=== PATIENT | male | born 1995 | race African-American/Black ===

== ENCOUNTER 2020-04-14 21:11 | Observation (INO) | payer OTHER, SELFPAY ==
[~2020-04-14] VITALS: Ht 170.2 cm; Wt 56.7 kg
[2020-04-14 21:30] VITALS: BP_SYST 107
--- NOTE | 2020-04-14 21:30 | NUR ---
PT IN LOBBY AWAITING ER BED TO BECOME AVAILABLE.
--- NOTE | 2020-04-14 21:45 | NUR ---
CALM, ALERT, COMMUNICATES CLEARLY. RESP UNLABORED, SKIN WARM AND DRY, NO DISTRESS
--- NOTE | 2020-04-14 21:50 | NUR ---
DR ROJAS IN TO ASSESS
[2020-04-14] MEDS ORDERED: levETIRAcetam 500 MG IV PREMIX 100 ML IV ONE (22:00)
[2020-04-14] MEDS ORDERED: ACETAMINOPHEN 325 MG TABLET PO ONE (22:00)
[2020-04-14] MEDS ORDERED: LORazepam 2 MG/ML VIAL IVP ONE (22:00)
--- NOTE | 2020-04-14 23:06 | NUR ---
ALERT, CALM, SEIZURE PADS INTACT, SR ON MONITOR NO ECTOPY
--- NOTE | 2020-04-15 00:05 | NUR ---
Blood for labwork drawn from medical records custodian. Patient tolerated well.
--- NOTE | 2020-04-15 00:32 | NUR ---
Patient resting quietly. No acute distress noted. Vital signs within normal range.
--- NOTE | 2020-04-15 01:51 | NUR ---
Patient resting quietly. No acute distress noted. Vital signs within normal range.
--- NOTE | 2020-04-15 03:19 | NUR ---
Patient resting quietly. No acute distress noted. Vital signs within normal range.
[2020-04-15 03:50] LABS: SODIUM SERUM 125 mmol/L (136-145)
[2020-04-15 03:51] LABS: ANION GAP 0 (5-15); CHLORIDE 69 mmol/L (98-107); GLUCOSE 90 mg/dL (70-99); POTASSIUM 2.3 mmol/L (3.5-5.1)
[2020-04-15 03:52] LABS: ALCOHOL, BLOOD < 3 mg/dL (<10); CALCIUM 9.7 mg/dL (8.4-11.0); CREATININE 4.39 mg/dL (0.55-1.30); GFR AFRICAN AMERICAN 21 mL/min (>90); UREA NITROGEN, BLOOD 56 mg/dL (8-21)
[2020-04-15] MEDS ORDERED: KCL 20 mEq in 100 mL (PREMIX) 100 ML IV ONE (04:00)
[2020-04-15] MEDS ORDERED: POTASSIUM CHLORIDE 20 MEQ/PKT PACKET PO ONE (04:15)
--- NOTE | 2020-04-15 04:20 | NUR ---
Patient woke up, patient reported, Hx Kidney problem and epilepsy (Keppra -patient report missed medication couple days).
--- NOTE | 2020-04-15 04:50 | NUR ---
Swabbed Covid-19 as protocol and sent to lab.
[2020-04-15] MEDS ORDERED: D5/0.45 NS 1,000 ML IV SCH (05:00)
[2020-04-15] MEDS ORDERED: LEVE250T2 PO (05:07)
--- NOTE | 2020-04-15 05:07 | NUR ---
Medication reconciliation completed with information provided by patient. Any prior medication reconciliation on file was reviewed and corrected.
--- NOTE | 2020-04-15 05:36 | NUR ---
Patient will be admitted to care of Dr. Dennis. Admitted to Tele unit. Will go to room 116B. Belongings list completed. Complete and up to date summary report printed. SBAR report to be given at bedside with opportunity for questions.
--- NOTE | 2020-04-15 05:47 | NUR ---
ADMIT NOTE Received pt from ER to the floor with a diagnosis of hypokalemia, renal failure. Admission process initiated. patient oriented to pain management, safety and call light-teach back done.
--- NOTE | 2020-04-15 05:50 | NUR ---
Opening notes Patient is resting in bed, no signs of distress noted. Breathing even and unlabored on room air. No complaints of pain or discomfort. IV pulled out. New IV to be inserted. Oriented patient to room and call light. Patient ambulatory with steady gait. Call light with the patient. Safety precautions in place.
[2020-04-15 06:00] VITALS: BP_SYST 99
--- NOTE | 2020-04-15 06:05 | NUR ---
Consultation Paged Reason for Consultation: Renal Failure Was consult called: Y Person who was notified : Mandy Consulting Physician: Dr. Ford Ordering Physician: Dr. Dennis
[2020-04-15] MEDS ORDERED: FLU VACC QS2020-21 (6 mos & up) 0.5 ML/SYRINGE I.M. PRN (06:15)
--- NOTE | 2020-04-15 06:56 | NUR ---
Closing notes Patient is resting in bed, no signs of distress noted. Breathing even and unlabored on room air. New IV inserted into LFA 22 gauge. Resumed IVF. All needs met. Call light with the patient. Safety precautions in place. Will endorse care to day shift RN. Addendum: 04/15/20 at 0658 by Mirta Jones RN Will endorse to next shift that patient wants Flu shot. Addendum: 04/15/20 at 0710 by Mirta Jones RN ORDERED D5 1/2 NS @ 125 ML/HR STARTED AT 0701.
[2020-04-15 07:02] LABS: BASOPHILS % (AUTO) 0.3 % (0.0-2.0); EOSINOPHILS # (AUTO) 0.1 K/uL (0.0-0.4); EOSINOPHILS % (AUTO) 0.9 % (0.0-4.0); HEMATOCRIT 39.2 % (36-54); HEMOGLOBIN 13.5 g/dL (14.0-18.0); LYMPHOCYTES # (AUTO) 1.6 K/uL (1.0-5.5); LYMPHOCYTES % (AUTO) 19.9 % (20.5-51.5); MEAN CORPUSCULAR HEMOGLOBIN 33 pg (27-31); MEAN CORPUSCULAR HGB CONC 34 % (32-36); MEAN CORPUSCULAR VOLUME 95 fL (79.0-98.0); MONOCYTES % (AUTO) 12.4 % (1.7-9.3); NEUTROPHILS # (AUTO) 5.5 K/uL (1.8-7.7); NEUTROPHILS % (AUTO) 66.5 % (40.0-70.0); PLATELET COUNT (AUTO) 173 K/uL (130-430); RED BLOOD CELL COUNT(AUTO) 4.12 MIL/uL (4.2-6.2); RED CELL DISTRIBUTION WIDTH 12.4 % (9.0-15.0); WHITE BLOOD COUNT (AUTO) 8.3 K/uL (4.8-10.8)
--- NOTE | 2020-04-15 07:29 | NUR ---
RECEIVED REPORT FROM ACID REGENERATOR RN. PATIENT ASLEEP, RESP REG., NO-LABORED, IVF INFUSING AT 125 ML/HR. NAD NOTED.
[2020-04-15 08:00] VITALS: BP_SYST 98
[2020-04-15] MEDS: D5NS 1,000 ML IV SCH ×2 (10:13→17:15)
--- NOTE | 2020-04-15 10:20 | NUR ---
MED PASS DONE. RECEIVED A CALL FROM Dayana MCKEON CONSULT, NEW ORDERS GIVEN. PATIENT ATE BREAKFAST, TOLERATED WELL.
--- NOTE | 2020-04-15 11:10 | NUR ---
MADE ROUNDS WITH DR MEDINA, PT ASKING WHEN HE CAN BE D/C'D, EXPLAINED HIS CONDITION IS GUARDED, PT NEEDS RE-ENFORCEMENT TEACHING. WILL CONT TO MONITOR FOR CHANGES.
[2020-04-15] MEDS ORDERED: acetaZOLAMIDE 250 MG TABLET (DIAMOX) PO ONE (12:00)
[2020-04-15 12:08] VITALS: BP_SYST 105
[2020-04-15 12:35] LABS: SODIUM SERUM 128 mmol/L (136-145)
[2020-04-15 12:36] LABS: CALCIUM 8.5 mg/dL (8.4-11.0); CREATININE 3.66 mg/dL (0.55-1.30); GFR AFRICAN AMERICAN 26 mL/min (>90); GLUCOSE 80 mg/dL (70-99); UREA NITROGEN, BLOOD 53 mg/dL (8-21)
[2020-04-15 12:40] LABS: ANION GAP < 3 (5-15); CHLORIDE 79 mmol/L (98-107); POTASSIUM 2.2 mmol/L (3.5-5.1)
--- NOTE | 2020-04-15 12:43 | NUR ---
josé miguel MEDINA FOR CRITICAL LAB RESULT SPOKE TO MARCIANO
--- NOTE | 2020-04-15 12:55 | NUR ---
HIGH ALERT NOTE: Called TESSY Rivera back at [phone] identified within the medical roster to verify physician authenticity., order of KRIDER 50 meq + 50 mg WITH 500 CC OF NORMAL SALINE
[2020-04-15] MEDS ORDERED: COMMUNICATION ORDER XX ONE (13:00)
[2020-04-15] MEDS ORDERED: ONDANSETRON HCL 4 MG/2 ML VIAL IVP PRN (13:15)
--- NOTE | 2020-04-15 13:20 | NUR ---
PT W/ N/V- VOMITED 150 ML. CRITICAL LAB VALUE K 2.2. DR MEDINA AND DR CARDENAS MADE AWARE OF PATIENT PRESENT STATUS. NEW ORDERS GIVEN.
[2020-04-15] MEDS ORDERED: NS IV ONE (14:00)
[2020-04-15] MEDS ORDERED: LIDOCAINE JECT IV ONE (14:00)
[2020-04-15] MEDS ORDERED: POTASSIUM CHLORIDE IV ONE (14:00)
--- NOTE | 2020-04-15 14:00 | NUR ---
RECEIVED A CALL FROM US RE: RENAL/ ABD US, PT MUST BE NPO X 6HOURS FOR PROCEDURE TO BE DONE. PT ATE LUNCH AT 1300, THEREFORE WILL BE DONE EARLY IN AM, PT TO BE NPO AT 12 MIDNIGHT.
--- NOTE | 2020-04-15 14:35 | NUR ---
ZOFRAN 4 MG IVP GIVEN FOR N/V EFFECTIVE, STAT MAG ORDERED, RESULT= 2.8, CALL OUT TO DR MEDINA FOR MEDICAL DETERMINATION.
--- NOTE | 2020-04-15 14:57 | NUR ---
S/W DR MEDINA RE: MAG 2.8, NO NEW ORDERS AT PRESENT. ALSO INFORMED OF US ODER WILL BE CARRIED OUT IN EARLY AM DUE TO ORDER SPECIFIC DETAILS. DR MEDINA VERBALIZED AN OK TO NPO AT 12 MID / EARLY AM PROCEDURE.
[2020-04-15] MEDS ORDERED: levETIRAcetam 500 MG TABLET PO ONE (15:00)
--- NOTE | 2020-04-15 15:17 | NUR ---
DR CARDENAS CALLED AND MADE AWARE OF PATIENT ELECTROLYTES AND DR MEDINA'S (NEPHRO) MEDICAL DETERMINATION. ALSO INFORMED OF PATIENT FLIGHT RISK DUE TO LACK OF INSIGHT OF HIS PRESENTING ILLNESS. DR CARDENAS STATES HE IS AWARE OF PATIENT ADÁN AND INSIGHT, HE WILL RE-ENFORCE EDUCATION OF SAFETY NEEDS REGARDING ADMISSION STATUS.
[2020-04-15 16:05] VITALS: BP_SYST 99
--- NOTE | 2020-04-15 16:13 | NUR ---
DR CARDENAS SAW PATIENT AT BEDSIDE, DISCUSSED THE IMPORTANCE OF COMPLETING CARE PATH TO RESOLVE HIS ELECTROLYTE IMBALANCE, Pt VERBALIZED UNDERSTANDING AND STATED OK.
--- NOTE | 2020-04-15 17:10 | NUR ---
PATIENT ATTEMPTING TO LEAVE HOSPITAL AMA, ASKING FOR A VOUCHER TO GET TO A HOTEL WHERE HIS MOTHER IS STAYING. EXPLAINED THAT HE HAS NO D/C ORDER THEREFORE WE CANNOT PAY FOR UBER OR A TAXI FOR HIM, HE WILL BE ON HIS OWN. PATIENT CALLED HIS MOTHER RE: CLOTHES AND MONEY TO LEAVE HOSPITAL, THERE WAS YELLING, MOM HUNG-UP. PATIENT STATES I WILL STAY FOR DINNER, AND AFTER THE IV FINISHES. EDUCATION RE-ITERATED ON SAFETY, NOT GETTING OUT OF BED, ENC. USE OF URINAL, AND USE OF CALL LIGHT FOR ASSIST. PT W/ STEADY GAIT TO BRP HOWEVER HAS AN ACTIVE SEIZURE ACTIVITY PRECAUTION. NO DISTRESS OR INJURIES INCURRED.
--- NOTE | 2020-04-15 17:15 | NUR ---
PATIENT MOTHER CALLED. S/W MOM REGARDING PATIENTS BEHAVIOR AND DESIRE TO LEAVE AGAINST MEDICAL ADVICE, MOM STATES "WE DON'T HAVE WHERE TO LIVE , I AM AT A HOTEL, HE NEEDS TO GET WELL, AND NEEDS TO STAY IN HOSPITAL UNTIL HE IS WELL.". MOM REQUESTED MD PHONE NUMBER [phone], RE-ITERATED THAT SHE WILL CLL THE DOCTOR (DR CARDENAS'S OFFICE) IN THE AM. PT REMINDED THAT HE IS NPO AT 12 MIDNIGHT UNTIL AM, AFTER US PROCEDURE, PATIENT VERBALIZED UNDERSTANDING, HOWEVER WILL NEED RE-ITERATION, HE IS FORGETFUL, UNABLE TO DETERMINE IF ITS PURPOSEFUL OR AN ACTUAL COGNITIVE DEFICIT AT PRESENT.
--- NOTE | 2020-04-15 17:56 | NUR ---
CONSULTATION PAGED/CALLED Reason for Consultation: [] SEIZURES Person Who was Notified: [] TEXTED DR Yuriy BARBER ON HIS CELL Consulting Physician: [] DR Yuriy BARBER Human Resources Director Specialty: [] NEURO Ordering Physician: [] DR HORN
[2020-04-15 18:13] LABS: SODIUM SERUM 125 mmol/L (136-145)
[2020-04-15 18:16] LABS: POTASSIUM 2.5 mmol/L (3.5-5.1)
[2020-04-15 18:17] LABS: CHLORIDE 80 mmol/L (98-107)
[2020-04-15 18:18] LABS: ANION GAP < 3 (5-15); CALCIUM 8.1 mg/dL (8.4-11.0); CREATININE 3.31 mg/dL (0.55-1.30); GFR AFRICAN AMERICAN 29 mL/min (>90); GLUCOSE 89 mg/dL (70-99); UREA NITROGEN, BLOOD 47 mg/dL (8-21)
--- NOTE | 2020-04-15 19:00 | NUR ---
IVF LATE ENTRY DUE TO PATIENT CARE 10:13 - IVF OF D5NS AT 125ML /HOUR STARTED AT 0701 WAS REPLACED WITH ANEW BAG DUE TO BAG LEAKAGE. 13:53 - ABOVE IVF OF D5NS STOPPED AND DISCONTINUED, REPLACED WITH KRIDER WITH LIDOCAINE IN 500ML NS AT 105.5ML /HOUR. 18:00 - kRIDER COMPLETED AT AND DISCONTINUED.
--- NOTE | 2020-04-15 19:30 | NUR ---
REPORT TO TOE CLOSING MACHINE TENDER RN. PATIENT IN BED WATCHING TV AND ON THE PHONE. RESP REG NON-LABORED, NAD NOTED
--- NOTE | 2020-04-15 19:50 | NUR ---
INITIAL NOTE AT INITIAL INTRODUCTION, PATIENT IS RESTING IN BED, STABLE, NO SIGNS OF RESPIRATORY DISTRESS. PATIENT VERBALIZES NO PAIN. PLAN OF CARE FOR THE EVENING IS COMMUNICATED WITH THE PATIENT. PATIENT DEMONSTRATES CORRECT USAGE OF CALL LIGHT AT THIS TIME. BED IS LOCKED, ALARMED, AND AT THE LOWEST LEVEL. FALL SAFETY EDUCATION PROVIDED. FALL, SAFETY, SEIZURE AND RESPIRATORY PRECAUTIONS WILL BE TAKEN THROUGHOUT THE SHIFT. PATIENT STATES HE WANTS TO LEAVE AMA TONIGHT, HE HAS MADE ARRANGEMENTS WITH HIS FAMILY ON HIS OWN, WELL CALLED A CAB SERVICE FOR HIMSELF. HOMELESS WAIVER AND AMA FORM ARE BOTH SIGNED. PATIENT STATES HE WISHES TO GO DESPITE UNDERSTANDING EDUCATION ABOUT SAFETY AND RISKS OF LEAVING AMA. CHARGE NURSE AND VICTIMS ADVOCATE CLERK/SPECIALIST ARE MADE AWARE.
[2020-04-15] MEDS ORDERED: levETIRAcetam 500 MG TABLET PO SCH (21:00)
--- NOTE | 2020-04-15 21:20 | NUR ---
PATIENT LEAVES AMA PATIENT IS LEAVING AMA AT THIS TIME DESPITE EDUCATIONAL EFFORTS. PER DAY SHIFT RN, DR. CARDENAS AND DR. MEDINA HAS BOTH MADE ATTEMPTS AT BEDSIDE URGING THE PATIENT TO STAY IN THE HOSPITAL. PATIENT HAS BEEN EDUCATED ABOUT THE DANGERS AND RISK OF LEAVING THE HOSPITAL WHEN HIS DOCTORS FEEL THAT IT IS IMPORTANT FOR HIM TO STAY FOR OBSERVATION. PATIENT VERBALIZES UNDERSTANDING. DESPITE EDUCATIONAL EFFORTS, PATIENT STATES, "I DON'T CARE I JUST WANT A CIGARETTE AND MY OWN BED". PATIENT REFUSES ALL RESOURCES/SERVICES OFFERED AT THIS TIME. HE HAS BEEN GIVEN EDUCATIONAL PRINT OUTS TO TAKE HOME ABOUT HIS DIAGNOSIS. AT DISCHARGE, PATIENT STATES HE DID NOT HAVE ANY BELONGINGS THAT HE CAME WITH OTHER THAN HIS BOXERS. SAFETY EDUCATION IS REINFORCED. PATIENT HAS CALLED HIS OWN CAB SERVICE TO PICK HIM UP. PATIENT HAS SIGNED AMA FORM AND HOMELESS WAIVER FORM. Addendum: 04/16/20 at 0153 by Cookie Henriquez RN PATIENT'S IV IS D/C, CATHETER TIP INTACT, NO SIGNS OF ACTIVE BLEED. HOSPITAL I.D. BAND WELL ALSO REMOVED.
--- NOTE | 2020-04-15 22:08 | NUR ---
Consult Cancelled for Dr. Abdalla, through text message.
[2020-04-16] MEDS ORDERED: acetaZOLAMIDE 250 MG TABLET (DIAMOX) PO SCH (09:00)
== END 2020-04-15 21:20 | disposition left against medical advice (07) ==
LOC: SED 21:11 → STU 04-15 04:56
PROVIDERS: ADMIT Internal Medicine; ATTEND Internal Medicine
DX: G40.909 Epilepsy, unspecified, not intractable, without status epilepticus (principal); Z20.828 Contact with and (suspected) exposure to other viral communicable diseases; E87.6 Hypokalemia; N17.9 Acute kidney failure, unspecified; N18.9 Chronic kidney disease, unspecified; E87.1 Hypo-osmolality and hyponatremia; E83.41 Hypermagnesemia; E87.3 Alkalosis; F17.210 Nicotine dependence, cigarettes, uncomplicated; Z79.899 Other long term (current) drug therapy; R79.89 Other specified abnormal findings of blood chemistry; Z91.19 Patient's noncompliance with other medical treatment and regimen; Z23 Encounter for immunization
CPT/HCPCS: 36415 ×2; 80048 ×2; 83735; 85025; 87426; 90471; 90686; 93005; 96361; 96365; 96366; 96367; 96375 ×2; 99285; G0378; G0482; J1953; J2060; J2405; J3480 ×2; J7040; J7042

== ENCOUNTER 2020-07-10 02:29 | Inpatient (IN) | payer OTHER, SELFPAY ==
[~2020-07-10] VITALS: Ht 172.7 cm; Wt 49.0 kg
[~2020-07-10 02:29] MED LIST: LEVE250T2 PO
[2020-07-10 02:30] VITALS: BP_SYST 106
[2020-07-10] MEDS ORDERED: POTASSIUM CHLORIDE 20 MEQ TAB.PRT.SR ONE (02:43)
[2020-07-10] MEDS ORDERED: POTASSIUM CHLORIDE 20 MEQ TAB.PRT.SR PO ONE ×2 (02:45→20:00)
[2020-07-10] MEDS ORDERED: levETIRAcetam 500 MG TABLET PO ONE (02:45)
[2020-07-10] MEDS ORDERED: levETIRAcetam 500 MG TABLET ONE ×2 (02:52→02:58)
[2020-07-10] MEDS ORDERED: POTASSIUM CHLORIDE 20 MEQ/PKT PACKET ONE (02:57)
[2020-07-10 03:23] LABS: CALCIUM 9.8 mg/dL (8.4-11.0); CREATININE 3.69 mg/dL (0.55-1.30)
[2020-07-10 03:29] LABS: ALBUMIN 4.4 g/dL (3.4-4.8); TOTAL BILIRUBIN 0.5 mg/dL (0.0-1.0)
[2020-07-10 03:50] LABS: POTASSIUM 1.6 mmol/L (3.5-5.1)
[2020-07-10] MEDS ORDERED: NACL 0.9% 1,000 ML IV ONE (04:00)
[2020-07-10] MEDS ORDERED: KCL 20 mEq in 100 mL (PREMIX) 200 ML IV ONE (04:00)
[2020-07-10] MEDS ORDERED: KCL 40 mEq in 100 mL (PREMIX) 100 ML IV ONE (04:00)
[2020-07-10 04:26] LABS: BASOPHILS # (AUTO) 0.1 K/uL (0.0-0.2); BASOPHILS % (AUTO) 0.8 % (0.0-2.0); EOSINOPHILS # (AUTO) 0.1 K/uL (0.0-0.4); EOSINOPHILS % (AUTO) 1.4 % (0.0-4.0); HEMATOCRIT 41.6 % (36-54); HEMOGLOBIN 14.3 g/dL (14.0-18.0); LYMPHOCYTES # (AUTO) 3.2 K/uL (1.0-5.5); LYMPHOCYTES % (AUTO) 30.8 % (20.5-51.5); MEAN CORPUSCULAR HEMOGLOBIN 33 pg (27-31); MEAN CORPUSCULAR HGB CONC 35 % (32-36); MEAN CORPUSCULAR VOLUME 95 fL (79.0-98.0); MONOCYTES # (AUTO) 1.2 K/uL (0.0-1.0); NEUTROPHILS # (AUTO) 5.9 K/uL (1.8-7.7); PLATELET COUNT (AUTO) 224 K/uL (130-430); RED BLOOD CELL COUNT(AUTO) 4.37 MIL/uL (4.2-6.2); RED CELL DISTRIBUTION WIDTH 12.1 % (9.0-15.0); WHITE BLOOD COUNT (AUTO) 10.5 K/uL (4.8-10.8)
[2020-07-10 04:30] LABS: PHOSPHORUS 4.9 mg/dL (2.7-4.5)
[2020-07-10] MEDS ORDERED: NACL 0.9% 1,000 ML IV SCH (06:45)
[2020-07-10 06:58] LABS: BARBITURATE, URINE NEGATIVE (NEG <=200); BENZODIAZEPINE, URINE NEGATIVE (NEG <=150); CANNABINOID, URINE NEGATIVE (NEG <=50); COCAINE, URINE NEGATIVE (NEG <=150); METHAMPHETAMINES SCREEN,URINE NEGATIVE (NEG <=500); OPIATE, URINE NEGATIVE (NEG <=100); PHENCYCLIDINE SCREEN,URINE NEGATIVE (NEG <=25); UR TRICYCLIC ANTIDEPRESSANTS NEGATIVE (NEG <=300); URINE AMPHETAMINE NEGATIVE (NEG <=500); URINE METHADONE NEGATIVE (NEG <=200); URINE OXYCODONE SCREEN NEGATIVE (NEG <=100); URINE PROPOXYPHENE SCREEN NEGATIVE (NEG <=300)
[2020-07-10] MEDS ORDERED: POTA10TA11 PO (07:16)
[2020-07-10 08:15] LABS: CALCIUM 8.4 mg/dL (8.4-11.0); CREATININE 2.59 mg/dL (0.55-1.30)
[2020-07-10] MEDS ORDERED: BANANA BAG 1 EA, FOLIC ACID 1 MG, THIAMINE HCL 100 MG, MAGNESIUM SULFATE 1 GM, MVI 10 M... IV SCH ×5 (09:30)
[2020-07-10] MEDS ORDERED: levETIRAcetam 500 MG in NS 100 ML IV SCH (09:30)
[2020-07-10] MEDS ORDERED: LORazepam 2 MG/ML VIAL IVP PRN (09:30)
[2020-07-10 09:32] VITALS: BP_SYST 111
[2020-07-10] MEDS ORDERED: POTASSIUM CHLORIDE 40 MEQ, LIDOCAINE JECT 2% PF 100 MG 50 MG in NS 250 ML IV ONE ×2 (09:45→15:00)
[2020-07-10] MEDS ORDERED: FLU VACC QS2020-21 (6 mos & up) 0.5 ML/SYRINGE I.M. PRN (09:45)
[2020-07-10 10:21] LABS: PHOSPHORUS 4.6 mg/dL (2.7-4.5)
[2020-07-10 12:00] VITALS: BP_SYST 97
[2020-07-10] MEDS ORDERED: THIAMINE HCL 100 MG, MAGNESIUM SULFATE 1 GM in NS 100 ML IV SCH (12:00)
[2020-07-10] MEDS ORDERED: FOLIC ACID 1 MG, MVI 10 ML in NACL 0.9% 1,000 ML IV SCH (12:00)
[2020-07-10 17:44] VITALS: BP_SYST 102
[2020-07-10 19:26] LABS: ALBUMIN 3.3 g/dL (3.4-4.8); CALCIUM 8.4 mg/dL (8.4-11.0); CREATININE 2.32 mg/dL (0.55-1.30); TOTAL BILIRUBIN 0.5 mg/dL (0.0-1.0)
[2020-07-10 19:35] LABS: POTASSIUM 2.7 mmol/L (3.5-5.1)
== END 2020-07-10 21:50 | disposition left against medical advice (07) | DRG 53 ==
LOC: SED 02:29 → STU 06:44
PROVIDERS: ADMIT Internal Medicine Hospice and Palliative Medicine; ATTEND Internal Medicine Hospice and Palliative Medicine
DX: G40.909 Epilepsy, unspecified, not intractable, without status epilepticus (principal); E87.6 Hypokalemia; F10.20 Alcohol dependence, uncomplicated; Z53.29 Procedure and treatment not carried out because of patient's decision for other reasons; F17.200 Nicotine dependence, unspecified, uncomplicated; E86.0 Dehydration; Z20.822 Contact with and (suspected) exposure to COVID-19; N18.9 Chronic kidney disease, unspecified; T42.6X5A Adverse effect of other antiepileptic and sedative-hypnotic drugs, initial encounter; Y92.89 Other specified places as the place of occurrence of the external cause; Z79.899 Other long term (current) drug therapy; R65.11 Systemic inflammatory response syndrome (SIRS) of non-infectious origin with acute organ dysfunction; N17.0 Acute kidney failure with tubular necrosis
CPT/HCPCS: 36415; 80048; 80053; 80307; 82550-TC; 83735-TC; 84100-TC; 85025; 93005; 96365; 96366; 99285; G0378; G0482; J1953; J3411; J3475; J3480; J3490; J7030; J7050

== ENCOUNTER 2022-04-13 10:15 | Inpatient (IN) | payer OTHER ==
[2022-04-13] VITALS (7 sets, daily range): BP systolic 109–132
[~2022-04-13] VITALS: Ht 160 cm; Wt 61.2 kg
[~2022-04-13 10:15] MED LIST changes: +LEVE750T4 PO; +ONDA4TAB5 PO; +POTA-178 PO
[2022-04-13] MEDS ORDERED: NACL 0.9% 1,000 ML IV ONE ×2 (10:45→16:30)
[2022-04-13] MEDS ORDERED: levETIRAcetam 1,000 MG IV BAG 100 ML IV ONE (10:45)
[2022-04-13 10:56] LABS: BASOPHILS % (AUTO) 0.2 % (0.0-2.0); EOSINOPHILS % (AUTO) 0.2 % (0.0-4.0); HEMOGLOBIN 14.6 g/dL (14.0-18.0); LYMPHOCYTES # (AUTO) 1.9 K/uL (1.0-5.5); LYMPHOCYTES % (AUTO) 11.6 % (20.5-51.5); MEAN CORPUSCULAR HEMOGLOBIN 31 pg (27-31); MEAN CORPUSCULAR HGB CONC 34 % (32-36); MEAN CORPUSCULAR VOLUME 91 fL (79.0-98.0); MONOCYTES # (AUTO) 0.8 K/uL (0.0-1.0); MONOCYTES % (AUTO) 4.7 % (1.7-9.3); NEUTROPHILS # (AUTO) 13.4 K/uL (1.8-7.7); NEUTROPHILS % (AUTO) 83.3 % (40.0-70.0); PLATELET COUNT (AUTO) 284 K/uL (130-430); RED BLOOD CELL COUNT(AUTO) 4.72 MIL/uL (4.2-6.2); RED CELL DISTRIBUTION WIDTH 14.7 % (9.0-15.0); WHITE BLOOD COUNT (AUTO) 16.1 K/uL (4.8-10.8)
[2022-04-13 11:11] LABS: GLUCOSE 135 mg/dL (70-99); UREA NITROGEN, BLOOD 26 mg/dL (8-21)
[2022-04-13 11:16] LABS: ALANINE AMINOTRANSFERASE 21 U/L (12-78); ALBUMIN 4.2 g/dL (3.4-4.8); ASPARTATE AMINOTRANSFERASE 22 U/L (10-37); TOTAL BILIRUBIN 0.8 mg/dL (0.0-1.0)
[2022-04-13 11:39] LABS: ALCOHOL, BLOOD < 3 mg/dL (<10); ANION GAP 0 (5-15); GFR AFRICAN AMERICAN 10 mL/min (>90)
[2022-04-13 11:41] LABS: CHLORIDE 65 mmol/L (98-107); CREATININE 8.06 mg/dL (0.55-1.30); POTASSIUM 1.9 mmol/L (3.5-5.1)
[2022-04-13] MEDS ORDERED: POTASSIUM CHLORIDE 10 MEQ in NACL 0.9% 1,000 ML IV SCH ×4 (12:00)
[2022-04-13] MEDS ORDERED: POTASSIUM CHLORIDE 10 MEQ in NACL 0.9% 1,000 ML IV ONE (12:00)
[2022-04-13] MEDS ORDERED: POTASSIUM CHLORIDE 20 MEQ TAB.PRT.SR PO ONE ×2 (12:00)
[2022-04-13] MEDS ORDERED: MAGNESIUM SULFATE 50 ML IV ONE (12:15)
[2022-04-13] MEDS ORDERED: FOLIC ACID 1 MG, THIAMINE HCL 100 MG, MAGNESIUM SULFATE 1 GM, MVI 10 ML in NACL 0.9% 1,... IV ONE (12:30)
[2022-04-13] MEDS ORDERED: THIAMINE HCL 100 MG, MAGNESIUM SULFATE 1 GM in NS 100 ML IV ONE (12:45)
[2022-04-13] MEDS ORDERED: FOLIC ACID 1 MG, MVI 10 ML in NACL 0.9% 1,000 ML IV ONE (12:45)
[2022-04-13] MEDS ORDERED: PANTOPRAZOLE SODIUM 40 MG/VIAL (PROTONIX) IVP ONE (16:00)
[2022-04-13] MEDS ORDERED: LORazepam 2 MG/ML VIAL IVP PRN (16:00)
[2022-04-13 16:47] LABS: BLOOD, URINE 2+ (NEGATIVE); CLARITY/URINE CLEAR (CLEAR); COLOR,URINE YELLOW (YELLOW); GLUCOSE,URINE NEGATIVE (NEGATIVE); KETONES,URINE NEGATIVE (NEGATIVE); LEUKOCYTE ESTERASE ,URINE NEGATIVE (NEGATIVE); NITRITE, URINE NEGATIVE (NEGATIVE); PH,URINE 6.5 (5.0-8.0); PROTEIN URINE 2+ (NEGATIVE); UROBILINOGEN,URINE 0.2 (0.2-1.0)
[2022-04-13 16:50] LABS: BASOPHILS # (AUTO) 0.1 K/uL (0.0-0.2); BASOPHILS % (AUTO) 0.3 % (0.0-2.0); EOSINOPHILS # (AUTO) 0.1 K/uL (0.0-0.4); EOSINOPHILS % (AUTO) 0.5 % (0.0-4.0); HEMATOCRIT 34.8 % (36-54); LYMPHOCYTES # (AUTO) 2.1 K/uL (1.0-5.5); LYMPHOCYTES % (AUTO) 13.9 % (20.5-51.5); MEAN CORPUSCULAR HEMOGLOBIN 32 pg (27-31); MEAN CORPUSCULAR HGB CONC 35 % (32-36); MEAN CORPUSCULAR VOLUME 91 fL (79.0-98.0); MONOCYTES % (AUTO) 6.9 % (1.7-9.3); NEUTROPHILS # (AUTO) 11.7 K/uL (1.8-7.7); NEUTROPHILS % (AUTO) 78.4 % (40.0-70.0); PLATELET COUNT (AUTO) 193 K/uL (130-430); RED BLOOD CELL COUNT(AUTO) 3.81 MIL/uL (4.2-6.2); RED CELL DISTRIBUTION WIDTH 14.5 % (9.0-15.0); WHITE BLOOD COUNT (AUTO) 14.9 K/uL (4.8-10.8)
[2022-04-13] MEDS ORDERED: POTASSIUM CHLORIDE 20 MEQ/PKT PACKET PO ONE (17:00)
[2022-04-13] MEDS ORDERED: KCL 40 mEq in 100 mL (PREMIX) 100 ML IV ONE ×4 (17:00→23:25)
[2022-04-13 17:03] LABS: BARBITURATE, URINE NEGATIVE (NEG <=200); BENZODIAZEPINE, URINE NEGATIVE (NEG <=150); CANNABINOID, URINE NEGATIVE (NEG <=50); COCAINE, URINE NEGATIVE (NEG <=150); METHAMPHETAMINES SCREEN,URINE NEGATIVE (NEG <=500); OPIATE, URINE NEGATIVE (NEG <=100); PHENCYCLIDINE SCREEN,URINE NEGATIVE (NEG <=25); UR TRICYCLIC ANTIDEPRESSANTS NEGATIVE (NEG <=300); URINE AMPHETAMINE NEGATIVE (NEG <=500); URINE METHADONE NEGATIVE (NEG <=200); URINE OXYCODONE SCREEN NEGATIVE (NEG <=100); URINE PROPOXYPHENE SCREEN NEGATIVE (NEG <=300)
[2022-04-13 17:09] LABS: BILIRUBIN,URINE NEGATIVE (NEGATIVE)
[2022-04-13] MEDS ORDERED: NACL 0.9% 1,000 ML IV SCH (17:30)
[2022-04-13 17:35] LABS: BACTERIA,URINE None Seen /HPF (None Seen); MUCUS,URINE None Seen /LPF (None Seen); WBC,URINE 0-3 /HPF (0-3)
[2022-04-13 17:36] LABS: HYALINE CASTS, URINE 0-10 /LPF (None Seen)
[2022-04-13 17:38] LABS: CALCIUM 7.1 mg/dL (8.4-11.0); CREATININE 5.51 mg/dL (0.55-1.30)
[2022-04-13 18:11] LABS: PHOSPHORUS 6.1 mg/dL (2.7-4.5)
[2022-04-13 19:10] LABS: POTASSIUM 1.7 mmol/L (3.5-5.1)
[2022-04-13] MEDS: POTASSIUM CHLORIDE 40 MEQ in D5W 250 ML IV SCH ×2 (19:45→23:45)
[2022-04-13] MEDS: POTASSIUM CHLORIDE 20 MEQ TAB.PRT.SR PO SCH (20:46)
[2022-04-13 21:21] LABS: CREATININE 4.12 mg/dL (0.55-1.30)
[2022-04-13 22:22] LABS: PROTHROMBIN TIME 10.4 SECS (9.5-12.5)
[2022-04-13] MEDS: levETIRAcetam 500 MG in NS 100 ML IV SCH (22:32)
[2022-04-14] VITALS (16 sets, daily range): BP systolic 96–142
[2022-04-14] MEDS ORDERED: KCL 40 mEq in 100 mL (PREMIX) 100 ML IV ONE ×3 (01:00→04:07)
[2022-04-14 07:51] LABS: BASOPHILS # (AUTO) 0.1 K/uL (0.0-0.2); BASOPHILS % (AUTO) 0.7 % (0.0-2.0); EOSINOPHILS # (AUTO) 0.1 K/uL (0.0-0.4); EOSINOPHILS % (AUTO) 1.5 % (0.0-4.0); HEMATOCRIT 33.3 % (36-54); HEMOGLOBIN 11.5 g/dL (14.0-18.0); LYMPHOCYTES # (AUTO) 2.5 K/uL (1.0-5.5); LYMPHOCYTES % (AUTO) 29.1 % (20.5-51.5); MEAN CORPUSCULAR HEMOGLOBIN 32 pg (27-31); MEAN CORPUSCULAR HGB CONC 35 % (32-36); MEAN CORPUSCULAR VOLUME 93 fL (79.0-98.0); MONOCYTES # (AUTO) 0.7 K/uL (0.0-1.0); MONOCYTES % (AUTO) 8.3 % (1.7-9.3); NEUTROPHILS # (AUTO) 5.2 K/uL (1.8-7.7); NEUTROPHILS % (AUTO) 60.4 % (40.0-70.0); PLATELET COUNT (AUTO) 157 K/uL (130-430); RED BLOOD CELL COUNT(AUTO) 3.59 MIL/uL (4.2-6.2); RED CELL DISTRIBUTION WIDTH 14.7 % (9.0-15.0); WHITE BLOOD COUNT (AUTO) 8.6 K/uL (4.8-10.8)
[2022-04-14 08:44] LABS: ALBUMIN 2.7 g/dL (3.4-4.8); CALCIUM 7.7 mg/dL (8.4-11.0); CREATININE 2.43 mg/dL (0.55-1.30); PHOSPHORUS 2.4 mg/dL (2.7-4.5); POTASSIUM 3.4 mmol/L (3.5-5.1); TOTAL BILIRUBIN 0.5 mg/dL (0.0-1.0)
[2022-04-14] MEDS: levETIRAcetam 500 MG in NS 100 ML IV SCH (09:31)
[2022-04-14] MEDS: POTASSIUM CHLORIDE 20 MEQ TAB.PRT.SR PO SCH ×2 (09:32→20:42)
[2022-04-14] MEDS: PANTOPRAZOLE SODIUM 40 MG/VIAL (PROTONIX) IVP SCH ×2 (09:32→20:43)
[2022-04-14] MEDS ORDERED: LORazepam 1 MG TABLET PO ONE (18:00)
[2022-04-14] MEDS ORDERED: NICOTINE 14 MG/24 HR PATCH.TD24 TD SCH (18:00)
[2022-04-14 18:07] LABS: CALCIUM 7.6 mg/dL (8.4-11.0); CREATININE 1.56 mg/dL (0.55-1.30)
[2022-04-14 18:09] LABS: POTASSIUM 3.8 mmol/L (3.5-5.1)
[2022-04-14] MEDS ORDERED: NICOTINE 21 MG/24 HR PATCH.TD24 TD ONE (18:30)
[2022-04-14] MEDS: KCL 20 mEq in 0.45% NS 1000 mL 1,000 ML IV SCH (18:46)
[2022-04-14] MEDS: levETIRAcetam 500 MG TABLET PO SCH (20:42)
[2022-04-14] MEDS: LORazepam 1 MG TABLET PO SCH (20:43)
[2022-04-15] VITALS: BP_SYST 136
[2022-04-15] MEDS: KCL 20 mEq in 0.45% NS 1000 mL 1,000 ML IV SCH (03:01)
[2022-04-15 06:45] LABS: BASOPHILS % (AUTO) 0.3 % (0.0-2.0); EOSINOPHILS # (AUTO) 0.3 K/uL (0.0-0.4); EOSINOPHILS % (AUTO) 4.2 % (0.0-4.0); HEMATOCRIT 29.3 % (36-54); HEMOGLOBIN 10.1 g/dL (14.0-18.0); LYMPHOCYTES # (AUTO) 2.9 K/uL (1.0-5.5); LYMPHOCYTES % (AUTO) 41.7 % (20.5-51.5); MEAN CORPUSCULAR HEMOGLOBIN 32 pg (27-31); MEAN CORPUSCULAR HGB CONC 35 % (32-36); MEAN CORPUSCULAR VOLUME 92 fL (79.0-98.0); MONOCYTES # (AUTO) 0.3 K/uL (0.0-1.0); MONOCYTES % (AUTO) 3.8 % (1.7-9.3); NEUTROPHILS # (AUTO) 3.5 K/uL (1.8-7.7); PLATELET COUNT (AUTO) 170 K/uL (130-430); RED BLOOD CELL COUNT(AUTO) 3.18 MIL/uL (4.2-6.2); RED CELL DISTRIBUTION WIDTH 14.7 % (9.0-15.0)
[2022-04-15 06:59] LABS: ALBUMIN 2.4 g/dL (3.4-4.8); CALCIUM 7.6 mg/dL (8.4-11.0); CREATININE 1.02 mg/dL (0.55-1.30); PHOSPHORUS 1.7 mg/dL (2.7-4.5); POTASSIUM 3.4 mmol/L (3.5-5.1); TOTAL BILIRUBIN 0.5 mg/dL (0.0-1.0)
[2022-04-15 08:00] VITALS: BP_SYST 121
[2022-04-15] MEDS ORDERED: NICOTINE 21 MG/24 HR PATCH.TD24 TD SCH (09:00)
[2022-04-15] MEDS: LORazepam 1 MG TABLET PO SCH (09:34)
[2022-04-15] MEDS: levETIRAcetam 500 MG TABLET PO SCH (09:34)
[2022-04-15] MEDS: POTASSIUM CHLORIDE 20 MEQ TAB.PRT.SR PO SCH (09:34)
[2022-04-15 10:25] LABS: POTASSIUM,URINE RANDOM 39 mmol/L (12-75); URINE SODIUM, RANDOM 65 mmol/L (40-220)
[2022-04-15 12:00] VITALS: BP_SYST 98
[2022-04-15] MEDS ORDERED: LEVE500T9 PO (14:54)
[2022-04-15] MEDS ORDERED: PRO40 PO (14:54)
[2022-04-15] MEDS ORDERED: POTA-178 PO (14:56)
[2022-04-15] MEDS ORDERED: NICO-736 TP ×2 (14:57→14:59)
[2022-04-15 15:09] VITALS: BP_SYST 98
== END 2022-04-15 15:50 | disposition home health service (06) | DRG 53 ==
LOC: SED 10:15 → STU 12:28 → SIC 19:53 → STU 04-14 18:38
PROVIDERS: ADMIT Internal Medicine; ATTEND Internal Medicine
DX: G40.909 Epilepsy, unspecified, not intractable, without status epilepticus (principal); N17.0 Acute kidney failure with tubular necrosis; G93.41 Metabolic encephalopathy; E44.0 Moderate protein-calorie malnutrition; E87.6 Hypokalemia; E87.1 Hypo-osmolality and hyponatremia; E87.3 Alkalosis; E87.8 Other disorders of electrolyte and fluid balance, not elsewhere classified; K80.20 Calculus of gallbladder without cholecystitis without obstruction; F10.10 Alcohol abuse, uncomplicated; Y90.9 Presence of alcohol in blood, level not specified; Z20.822 Contact with and (suspected) exposure to COVID-19
CPT/HCPCS: 36415; 36600; 70551; 76376; 76770; 80048; 80053; 80307; 81000; 82088; 82306; 82550; 82570; 82803-TC; 82962; 83655; 83735; 83935; 84100; 84244; 84302; 84999; 85025; 85610-TC; 85730-TC; 87081; 93005; 96361; 96365; 96366; 96367; 99291; C9113; G0378; G0482; J1953; J3411; J3475; J3480; J3490; J7030; J7060

== ENCOUNTER 2022-04-26 08:28 | Inpatient (IN) | payer OTHER ==
[~2022-04-26] VITALS: Ht 170.2 cm; Wt 56.7 kg
[~2022-04-26 08:28] MED LIST changes: -LEVE250T2 PO; +LEVE500T9 PO; -LEVE750T4 PO; +NICO-736 TP; +PRO40 PO
--- NOTE | 2022-04-26 08:40 | NUR ---
Patient to ER bed 8 to gown for evaluation. Side rails up. Report given to MARIA GUADALUPE JC.
[2022-04-26] MEDS ORDERED: LORazepam 2 MG/ML VIAL IVP ONE (08:45)
[2022-04-26] MEDS ORDERED: levETIRAcetam 1,500 MG in NS 85 ML IV ONE (08:45)
[2022-04-26] MEDS ORDERED: METOCLOPRAMIDE HCL 10 MG/2 ML VIAL IVP ONE (08:45)
[2022-04-26] MEDS ORDERED: NACL 0.9% 1,000 ML IV ONE ×6 (08:45→10:30)
--- NOTE | 2022-04-26 08:50 | NUR ---
Bib bls from hotel, CC Seizure post ichtal, NV episodes of vomiting past 2 days. 20 gauge in right forearm. saturation 98%. Pt returns from 04/13 hospitalization. Pt is aaox2 history of kidney failure. History of seizures. skin intact.
[2022-04-26 09:01] VITALS: BP_SYST 130
[2022-04-26 09:04] LABS: BASOPHILS % (AUTO) 0.1 % (0.0-2.0); EOSINOPHILS % (AUTO) 0.2 % (0.0-4.0); HEMATOCRIT 41.1 % (36-54); LYMPHOCYTES # (AUTO) 1.4 K/uL (1.0-5.5); LYMPHOCYTES % (AUTO) 12.4 % (20.5-51.5); MEAN CORPUSCULAR HEMOGLOBIN 32 pg (27-31); MEAN CORPUSCULAR HGB CONC 34 % (32-36); MEAN CORPUSCULAR VOLUME 93 fL (79.0-98.0); MONOCYTES # (AUTO) 0.8 K/uL (0.0-1.0); MONOCYTES % (AUTO) 6.9 % (1.7-9.3); NEUTROPHILS # (AUTO) 8.9 K/uL (1.8-7.7); NEUTROPHILS % (AUTO) 80.4 % (40.0-70.0); PLATELET COUNT (AUTO) 389 K/uL (130-430); RED BLOOD CELL COUNT(AUTO) 4.44 MIL/uL (4.2-6.2); RED CELL DISTRIBUTION WIDTH 14.3 % (9.0-15.0)
[2022-04-26 09:19] LABS: CALCIUM 10.6 mg/dL (8.4-11.0); CREATININE 6.31 mg/dL (0.55-1.30); GLUCOSE 230 mg/dL (70-99); UREA NITROGEN, BLOOD 32 mg/dL (8-21)
[2022-04-26 09:25] LABS: ALANINE AMINOTRANSFERASE 11 U/L (12-78); ALBUMIN 4.2 g/dL (3.4-4.8); ASPARTATE AMINOTRANSFERASE 19 U/L (10-37); TOTAL BILIRUBIN 1.2 mg/dL (0.0-1.0)
[2022-04-26 09:27] LABS: ANION GAP 10 (5-15); GFR AFRICAN AMERICAN 14 mL/min (>90)
[2022-04-26 09:28] LABS: ACETAMINOPHEN < 1 ug/mL (1-30); ALCOHOL, BLOOD < 3 mg/dL (<10); CHLORIDE 60 mmol/L (98-107)
--- NOTE | 2022-04-26 09:30 | NUR ---
Cirtical Lab values notified MD Berry, Potassium 1.6 Chloride 60 CO2 58 Creatinine 6.3
--- NOTE | 2022-04-26 09:49 | NUR ---
NOTIFIED ED ADMITTING,[facility], REGARDING DR. FREIRE'S REQUEST FOR ADMISSION. PER DR. FREIRE, PT IS NOT STABLE FOR TRANSFER. WILL CONTACT PLANNING CONSULTANT REGARDING THIS MATTER. PER FACESHEET: DIXIE SAMUELS
[2022-04-26] MEDS ORDERED: KCL 40 mEq in D5W 1000 mL 1,000 ML IV ONE (10:00)
[2022-04-26] MEDS ORDERED: POTASSIUM CHLORIDE 20 MEQ/PKT PACKET PO ONE (10:00)
--- NOTE | 2022-04-26 10:20 | NUR ---
Admit bed requested Patient will be admitted to care of . Admitted to tele unit. Diagnosis ALOC Inpatient (Yes or No) yes Observation (Yes or No) no Orientation concerns or request close to nursing station (Yes or No) no Covid Status pending On vent or bipap no Isolation requirements no Needs a sitter no From Home (Yes or if No enter name of facility) yes hotel Requires Dialysis (Yes or No) no Med Rec Completed (Yes of No) yes
--- NOTE | 2022-04-26 10:20 | NUR ---
ER at bedside examining patient.
--- NOTE | 2022-04-26 10:20 | NUR ---
DR. FREIRE SPOKE TO [facility] MED[facility] CENTERCLINICAL PRACTITIONER REGARDING PT PLAN OF CARE.
--- NOTE | 2022-04-26 10:27 | NUR ---
AUTH : [id number] DIXIE NAVARRO INSURANCE Addendum: 04/26/22 at 1220 by SDEDSM rakesh auth : [id number]
--- NOTE | 2022-04-26 11:33 | NUR ---
UNABLE TO OBTAIN HOME MEDICATION FOR MED REC.
--- NOTE | 2022-04-26 12:11 | NUR ---
Patient will be admitted to care of [facility]. Admitted to tele unit. Will go to room . Belongings list completed. Complete and up to date summary report printed. SBAR report to be given at bedside with opportunity for questions.
--- NOTE | 2022-04-26 12:22 | NUR ---
CONSULTATION PAGED/CALLED Reason for Consultation: [] TABATHA Person Who was Notified: [] DR MONGE Consulting Physician: [] DR MONGE Dispatch Specialist Specialty: [] NEPHROLOGY Ordering Physician: [] DR HORN
[2022-04-26 12:59] LABS: PROTHROMBIN TIME 10.4 SECS (9.5-12.5)
[2022-04-26 13:15] VITALS: BP_SYST 125
--- NOTE | 2022-04-26 13:16 | NUR ---
PT RECEIVED BY LUDY BELLO, PT VERY DROWSY, UNABLE TO FOLLOW COMMANDS. PT HAS NO IV ACCESS. LUDY BELLO STARTED IV ON AC BUT IT IS NOT USABLE. PT UNABLE TO GIVE INFORMATION RE HIS MEDICAL CONDITION. UNABLE TO ANSWER QUESTION.
--- NOTE | 2022-04-26 13:29 | NUR ---
CONSULTATION PAGED/CALLED Reason for Consultation: [] SEIZURE Person Who was Notified: [] DR NATALIYA BARBER Consulting Physician: [] DR Yuriy BARBER Junior Programmer Analyst Specialty: [] NEURO Ordering Physician: [] DR HONR
[2022-04-26] MEDS: LR 1,000 ML IV SCH ×2 (13:37→13:59)
[2022-04-26] MEDS: LORazepam 2 MG/ML VIAL IVP PRN (14:07)
--- NOTE | 2022-04-26 14:07 | NUR ---
PT AGITATED, TRYING TO GET OUT OF BED, UNABLE TO FOLLOW COMMAND TO STAY IN BED, PT GIVEN ATIVAN . WILL CONT TO MONITOR.
--- NOTE | 2022-04-26 14:50 | NUR ---
PT SLEEPING AT THIS TIME, CATHODE BUILDER AT BEDSIDE.
--- NOTE | 2022-04-26 14:52 | NUR ---
CALLED PT 'S MOTHER AND THIS RN UPDATED HER WITH PT'S STATUS.
[2022-04-26] MEDS ORDERED: POTASSIUM CHLORIDE 20 MEQ TAB.PRT.SR PO SCH (15:00)
--- NOTE | 2022-04-26 15:00 | NUR ---
ATTENDING MD DR HORN WAS CALLED TO CHANGE K ROUTE FROM PO TO IV. PT IS ASLEEP SOUNDLY. SPOKE TO DEBORAH.
--- NOTE | 2022-04-26 15:19 | NUR ---
in/out cath inserted aseptically for urine sampling. pt tolerated well.
[2022-04-26 16:28] LABS: BILIRUBIN,URINE NEGATIVE (NEGATIVE); BLOOD, URINE NEGATIVE (NEGATIVE); CLARITY/URINE CLEAR (CLEAR); COLOR,URINE YELLOW (YELLOW); GLUCOSE,URINE NEGATIVE (NEGATIVE); KETONES,URINE NEGATIVE (NEGATIVE); LEUKOCYTE ESTERASE ,URINE NEGATIVE (NEGATIVE); NITRITE, URINE NEGATIVE (NEGATIVE); PROTEIN URINE 2+ (NEGATIVE); UROBILINOGEN,URINE 0.2 (0.2-1.0)
[2022-04-26] MEDS ORDERED: POTASSIUM CHLORIDE 40 MEQ in NS 250 ML IV ONE (16:30)
[2022-04-26 16:35] LABS: BACTERIA,URINE None Seen /HPF (None Seen); HYALINE CASTS, URINE 0-10 /LPF (None Seen); MUCUS,URINE 1+ /LPF (None Seen); RBC,URINE 0-3 /HPF (0-3); WBC,URINE 0-3 /HPF (0-3)
[2022-04-26 16:53] LABS: BARBITURATE, URINE NEGATIVE (NEG <=200); CANNABINOID, URINE NEGATIVE (NEG <=50); COCAINE, URINE NEGATIVE (NEG <=150); METHAMPHETAMINES SCREEN,URINE NEGATIVE (NEG <=500); URINE AMPHETAMINE NEGATIVE (NEG <=500); URINE METHADONE NEGATIVE (NEG <=200)
[2022-04-26 16:54] LABS: BENZODIAZEPINE, URINE POSITIVE (NEG <=150); OPIATE, URINE NEGATIVE (NEG <=100); PHENCYCLIDINE SCREEN,URINE NEGATIVE (NEG <=25); UR TRICYCLIC ANTIDEPRESSANTS NEGATIVE (NEG <=300); URINE OXYCODONE SCREEN NEGATIVE (NEG <=100); URINE PROPOXYPHENE SCREEN NEGATIVE (NEG <=300)
--- NOTE | 2022-04-26 17:07 | NUR ---
DR MONGE MADE AWARE OF RESULTS OF ABG AND UA, INFORMED MD THAT URINE ELECTROLYTES ARE NOT YET AVAILABLE.
--- NOTE | 2022-04-26 18:12 | NUR ---
FOLLOWED UP WITH LAB THE 1800 BMP DRAW.
--- NOTE | 2022-04-26 18:40 | NUR ---
PT HAS BEEN SLEEPING SINCE ATIVAN GIVEN. WAKES UP TO MOVEMENT AND PAIN BUT GOES BACK TO SLEEP. WILL ENDORSE TO NIGHT NURSE. NEED TO CHECK LABS THIS PM ORDER.
[2022-04-26 19:17] LABS: CALCIUM 8.7 mg/dL (8.4-11.0); CREATININE 3.91 mg/dL (0.55-1.30)
[2022-04-26 20:00] VITALS: BP_SYST 103
[2022-04-26] MEDS: levETIRAcetam 500 MG IV PREMIX 100 ML IV SCH (22:01)
[2022-04-26] MEDS ORDERED: KCL 40 mEq in 100 mL (PREMIX) 100 ML IV ONE (22:15)
[2022-04-26] MEDS ORDERED: KCL 20 mEq in 100 mL (PREMIX) 100 ML IV ONE (22:45)
--- NOTE | 2022-04-26 23:00 | NUR ---
pt started more awake and alert. He would ask questions and follow command.
[2022-04-26 23:51] LABS: POTASSIUM,URINE RANDOM 68 mmol/L (12-75)
[2022-04-26 23:52] LABS: CHLORIDE,URINE RANDOM 11 mmol/L (55-125)
[2022-04-27] MEDS ORDERED: KCL 20 mEq in 100 mL (PREMIX) 100 ML IV ONE (00:45)
--- NOTE | 2022-04-27 02:30 | NUR ---
TRANSFER OF CARE RECEIVED REPORT FROM LUDY WOOD FOR CONTINUITY OF CARE
[2022-04-27] MEDS: LR 1,000 ML IV SCH ×3 (04:44→20:06)
--- NOTE | 2022-04-27 06:43 | NUR ---
CLOSING NOTE PT IS LYING IN BED, EYES CLOSED. NO S/S OF RESPIRATORY DISTRESS. BREATHING EVEN AND UNLABORED ON 2L NASAL CANNULA. SEIZURE PRECAUTIONS IN PLACE. IV SITE INTACT AND PATENT WITH FLUIDS RUNNING AT ORDERED RATE. PT WILL HAVE A PICC LINE PLACED TODAY. ALL NEEDS MET. FALL AND SAFETY PRECAUTIONS IN PLACE WITH BED IN LOWEST POSITION, BED ALARM ON, AND CALL LIGHT WITHIN REACH
[2022-04-27 07:49] LABS: BASOPHILS % (AUTO) 0.3 % (0.0-2.0); EOSINOPHILS # (AUTO) 0.1 K/uL (0.0-0.4); EOSINOPHILS % (AUTO) 1.4 % (0.0-4.0); HEMATOCRIT 31.4 % (36-54); HEMOGLOBIN 10.7 g/dL (14.0-18.0); LYMPHOCYTES # (AUTO) 2.4 K/uL (1.0-5.5); LYMPHOCYTES % (AUTO) 30.4 % (20.5-51.5); MEAN CORPUSCULAR HEMOGLOBIN 32 pg (27-31); MEAN CORPUSCULAR HGB CONC 34 % (32-36); MEAN CORPUSCULAR VOLUME 92 fL (79.0-98.0); MONOCYTES # (AUTO) 0.5 K/uL (0.0-1.0); MONOCYTES % (AUTO) 6.7 % (1.7-9.3); NEUTROPHILS # (AUTO) 4.9 K/uL (1.8-7.7); NEUTROPHILS % (AUTO) 61.2 % (40.0-70.0); PLATELET COUNT (AUTO) 189 K/uL (130-430); RED CELL DISTRIBUTION WIDTH 14.3 % (9.0-15.0)
[2022-04-27 08:01] VITALS: BP_SYST 111
[2022-04-27 08:19] LABS: ALBUMIN 2.9 g/dL (3.4-4.8); CALCIUM 9.1 mg/dL (8.4-11.0); CREATININE 2.09 mg/dL (0.55-1.30)
[2022-04-27] MEDS: levETIRAcetam 500 MG IV PREMIX 100 ML IV SCH ×2 (08:31→20:07)
--- NOTE | 2022-04-27 08:32 | NUR ---
Critial k level of 2.[address] Hurd is here and md made aware. Addendum: 04/27/22 at 1107 by Rancho Araiza RN ORDERS WERE GIVEN AND CARRIED OUT.
[2022-04-27] MEDS: POTASSIUM CHLORIDE 20 MEQ TAB.PRT.SR PO SCH ×4 (11:11→23:41)
--- NOTE | 2022-04-27 11:16 | NUR ---
PAGED DR HORN FOR ZOFRAN AND ADVANCE OF PT'S DIET.
[2022-04-27 11:21] VITALS: BP_SYST 112
[2022-04-27] MEDS ORDERED: LOPERAMIDE HCL 2 MG CAPSULE PO PRN (12:00)
--- NOTE | 2022-04-27 12:18 | NUR ---
DR HORN SPOKE WITH PT'S MOTHER ON THE PHONE. TEL NO [phone]
[2022-04-27] MEDS ORDERED: LOPERAMIDE HCL 2 MG CAPSULE PO ONE (12:45)
[2022-04-27 15:27] VITALS: BP_SYST 88
--- NOTE | 2022-04-27 15:34 | NUR ---
PAGED DR HORN FOR LOW BP OF 84/48 HR IS 85. PT DENIES DIZZINESS OR NAUSEA BUT PT HAS BEEN VOMITING. Addendum: 04/27/22 at 1622 by Rancho Araiza RN CALLED BACK AND NEW ORDERS GIVEN AND CARRIED OUT.
[2022-04-27] MEDS ORDERED: NACL 0.9% 1,000 ML IV ONE (16:00)
--- NOTE | 2022-04-27 16:22 | NUR ---
BOLUS IV FLUID RUNNING AT THIS TIME. WILL CONT TO MONITOR PT.
[2022-04-27] MEDS: ONDANSETRON HCL 4 MG/2 ML VIAL IVP PRN ×2 (16:26→20:08)
--- NOTE | 2022-04-27 16:28 | NUR ---
PT GIVEN ZOFRAN BEFORE DINNER.
[2022-04-27] MEDS ORDERED: NICOTINE 21 MG/24 HR PATCH.TD24 TD ONE (17:45)
[2022-04-27 18:26] VITALS: BP_SYST 99
[2022-04-27 19:00] VITALS: BP_SYST 102
--- NOTE | 2022-04-27 19:15 | NUR ---
change of shift.pt.presents quiescent affect;calm,resting.pt.presents iv access location;lt.forearm.iv fluids infusing: rate:150ml/hr. no c/o pain.pt.presents nausea.pt.capable to ambulate unassisted,reposition self.call light/telephone w/in access of the pt.
--- NOTE | 2022-04-27 19:31 | NUR ---
PT ENDORSED TO NIGHT NURSE DALIA. PT HAD EPISODE OF VOMITING DUE TO PT DRINGKING A LOT AND EATING TOO FAST, TOLD PT TO SLOW DOWN ON HIS INTAKE BUT DOES NOT LISTEN, PT ALSO HAD DIARRHEA X1 , PT BP WAS LOW THIS PT AND WAS GIVEN BOLUS OF 1 LITER NS ORDERED.
[2022-04-27 20:00] VITALS: BP_SYST 102
--- NOTE | 2022-04-27 20:00 | NUR ---
pt.assessed.v/s assessed values wnl.pt.presents quiescent affect;calm,resting.i have administered k+dur:40meq's: #3/4 doses.iv access intact;patent..i have apprised the pt.that snacks/beverages are available w/in the shift. pt.stated bring me any food items;provided.call light/telephone w/in access of the pt.
--- NOTE | 2022-04-27 20:30 | NUR ---
zofran:4mg ivp administered.to assess the efficacy of the medication per medication assessment policy.
--- NOTE | 2022-04-27 21:00 | NUR ---
21oo medications administered.pt.capable to ingest po medications w/out difficulty.call ligt/telephone w/in access of the pt.
--- NOTE | 2022-04-27 22:00 | NUR ---
pt.assessed.pt.quiescent,resting.iv access intact;patent.no c/o pain,nausea.call light/.telephone w/in access of the pt.
--- NOTE | 2022-04-27 23:00 | NUR ---
i have administered k+-dur;40meq's dose:#4/4 doses.
[2022-04-28] VITALS: BP_SYST 104
--- NOTE | 2022-04-28 | NUR ---
pt.assessed.v/s assessed values wnl.no c/o pain,nausea.pt.requested snacks/beverages;provided.iv access intact;patent call light/telephone w/in access of the pt.
[2022-04-28] MEDS: LR 1,000 ML IV SCH ×4 (01:01→20:33)
--- NOTE | 2022-04-28 02:00 | NUR ---
pt.assessed.pt.requested need for the restroom.pt.capable to ambulate unassisted.gait assessed wnl.pt.returned to bed. no c/o pain,nausea.pt.requested snacks/beverages;provided.call light/telephone w/in access of the pt.
--- NOTE | 2022-04-28 04:00 | NUR ---
pt.assessed.no c/o pain,nausea.pt.requested snacks/beverages;provided.iv access intact;patent.pt.capable to reposition self.call light/telephone w/in access of the pt.
--- NOTE | 2022-04-28 06:26 | NUR ---
pt.assessed.pt.requested need for the restroom.iv fluids disconnected to facilitate ambulation.no c/o pain,nausea.no requests posited@this hour.call light/telephone w/in access of the pt.
[2022-04-28 06:48] LABS: BASOPHILS % (AUTO) 0.4 % (0.0-2.0); EOSINOPHILS # (AUTO) 0.2 K/uL (0.0-0.4); EOSINOPHILS % (AUTO) 2.3 % (0.0-4.0); HEMATOCRIT 30.3 % (36-54); HEMOGLOBIN 10.4 g/dL (14.0-18.0); LYMPHOCYTES # (AUTO) 2.1 K/uL (1.0-5.5); LYMPHOCYTES % (AUTO) 24.1 % (20.5-51.5); MEAN CORPUSCULAR HEMOGLOBIN 32 pg (27-31); MEAN CORPUSCULAR HGB CONC 35 % (32-36); MEAN CORPUSCULAR VOLUME 93 fL (79.0-98.0); MONOCYTES # (AUTO) 0.4 K/uL (0.0-1.0); MONOCYTES % (AUTO) 4.6 % (1.7-9.3); NEUTROPHILS % (AUTO) 68.6 % (40.0-70.0); PLATELET COUNT (AUTO) 174 K/uL (130-430); RED BLOOD CELL COUNT(AUTO) 3.25 MIL/uL (4.2-6.2); RED CELL DISTRIBUTION WIDTH 14.4 % (9.0-15.0); WHITE BLOOD COUNT (AUTO) 8.8 K/uL (4.8-10.8)
[2022-04-28 07:36] LABS: ALBUMIN 2.8 g/dL (3.4-4.8); CALCIUM 8.6 mg/dL (8.4-11.0); CREATININE 1.67 mg/dL (0.55-1.30); TOTAL BILIRUBIN 0.3 mg/dL (0.0-1.0)
[2022-04-28 08:00] VITALS: BP_SYST 112
--- NOTE | 2022-04-28 08:00 | NUR ---
Initial Notes Patient is AOx4. Awake and eating breakfast. No s.s of distress noted. Patient has emesis earlier at change of shift. States feels better and is ready to leave. Patient denies nausea at this time. Denies wanting any medication at this time. Informed patient that there is no discharge order for him at this time, that he can leave AMA. Patient states will wait for his MD to come. Vital signs obtained, as documented. IV patent. IVF running. Seizure precautions in place. Bed locked, alarm on, and bed at lowest position. call light within reach.
[2022-04-28] MEDS ORDERED: NICOTINE 21 MG/24 HR PATCH.TD24 TD SCH (09:00)
--- NOTE | 2022-04-28 09:30 | NUR ---
Critical Dr. Mcgee here to see patient. MD made aware of Potassium and CO2 critical levels. Per MD, will put in orders.
[2022-04-28] MEDS ORDERED: POTASSIUM CHLORIDE 20 MEQ TAB.PRT.SR PO ONE (09:45)
[2022-04-28] MEDS: levETIRAcetam 500 MG IV PREMIX 100 ML IV SCH ×2 (10:01→20:33)
[2022-04-28] MEDS ORDERED: acetaZOLAMIDE 250 MG TABLET (DIAMOX) PO ONE (10:15)
--- NOTE | 2022-04-28 12:00 | NUR ---
Notes New IV inserted. 22 G R FA good blood return. IV patent. RN to administer Potassium IVF.
[2022-04-28] MEDS: KCL 40mEq in D5/0.45NS 1000 mL 1,000 ML IV SCH ×2 (12:03→20:15)
[2022-04-28 12:49] VITALS: BP_SYST 136
--- NOTE | 2022-04-28 12:58 | NUR ---
Concrete Block Maker MERCURY PURIFIER met with pt. who was suffering from alcohol withdrawals. MERCURY PURIFIER introduced self to pt. and provided her business cards as well as numerous resources including substance abuse, alcohol dependancy, mental health and detox. and homeless resources. Pt. accepted resources, stating "these look familiar". Pt. was admitted to this hospital last week on 04/13. Pt. stated it was also alcohol related. MERCURY PURIFIER asked pt. if he had ever enrolled in AA. but pt. stated he would not participate. Pt. stated he was not interested, but does see his drinking as a problem. MERCURY PURIFIER explained the resources to pt. MERCURY PURIFIER asked pt. if he had ever participate in counseling. Pt. stated about a year ago, he was in a mental hospital in [place] and stayed 4 long days. Pt. stated none of it was helpful. Pt. stated he has had a drinking problem since he was 14 years old and his parents are not a good example as they have drinking problems as well. Pt. stated he has been diagnosed with Depression in the past, but does not want to take the medication prescribed. MERCURY PURIFIER explained what it means to self medicate. Pt. stated he has goals to go to college, live on campus and and study technology. MERCURY PURIFIER encouraged pt. to work on those goes, but mentioned that the alcohol was a barrier. MERCURY PURIFIER asked pt. to make a move in the right direction and call to begin AA. Pt. stated he was not suicidal and said he would think about making some calls for interventions. MERCURY PURIFIER will remain available as needed.
--- NOTE | 2022-04-28 13:55 | NUR ---
Notes Patient states wants to leave AMA. Patient has been educated on risks and potential complications if leaving AMA. Patient verbalized understanding, and chooses to move forward with AMA. Called security. Security is looking for clothes for patient.
[2022-04-28] MEDS: POTASSIUM CHLORIDE 20 MEQ TAB.PRT.SR PO SCH ×2 (16:09→20:33)
--- NOTE | 2022-04-28 16:14 | NUR ---
Notes Patient chose to revoke AMA and has decided to stay. New IV inserted. 22 G EDNA. Blood return. IV patent. Paged Dr. Mcgee to inform. IVF running. Patient denies pain. No acute distress noted. Safety precautions in place and call light within reach.
[2022-04-28 17:33] VITALS: BP_SYST 109
--- NOTE | 2022-04-28 18:35 | NUR ---
Closing Notes Patient is eating dinner. No s/s of distress noted. Breathing is even and nonlabored, on room air. Patient denies pain. Denies SOB. IVF running. IV patent. All needs met. Safety precautions in place. Seizure precautions in place and call light within reach.
--- NOTE | 2022-04-28 18:54 | NUR ---
Dietitian Recommendations * Recommend Renal diet + Nepro daily (ONS yields 425 kcals, 19g Pro) * Double portions at mealtimes and provide snacks * Recommend daily MVI, folic acid, and thiamine Please refer to nutrition assessment for details, thanks! CC, MPH, RDN
[2022-04-28 20:00] VITALS: BP_SYST 121
--- NOTE | 2022-04-28 20:00 | NUR ---
OPENING NOTE Patient is AOx4. No s.s of distress noted. Pt states feels better and is ready to leave tonight. Patient denies nausea at this time. Informed patient that there is no discharge order for him at this time, that he can leave AMA. Patient states he will call his mom IV patent. IVF running. Seizure precautions in place. Bed locked, alarm on, and bed at lowest position. call light within reach.
--- NOTE | 2022-04-28 20:25 | NUR ---
AMA PT STATED HE IS LEAVING [facility] AND HIS MOM WILL BE HER TO PICK HIM UP.. PT ADVISED TO SATY IN THE HOSPITAL TO CONTMUE TREATMENT BUT PT DECLINED. PT WILL LEAVE ONCE HIS MOTHER ARRIVES
[2022-04-28] MEDS: ONDANSETRON HCL 4 MG/2 ML VIAL IVP PRN (20:33)
[2022-04-28] MEDS: LORazepam 2 MG/ML VIAL IVP PRN (20:34)
--- NOTE | 2022-04-28 20:35 | NUR ---
MOTHER CALLED HER CAR BROKE DOWN AND SHE CAN NOT COME GET THE PT AND WANT THE PT TO STAY IN THE HOSPITAL UNTIL TOMORROW. EXPLAINED TO MOTHER SHE HAS TO DISCUSS HER CONCERNS WITH THE PT
--- NOTE | 2022-04-28 21:15 | NUR ---
MOTHER CALLED MOTHER STATED THAT SHE WAS AT A HOTEL IN [place] AND THAT "WE" THE HOSPITAL NEEDS TO GET PT A CAB AND SEND HIM TO THE HOTEL. EXPLAINED TO MOTHER WE DO NOT PROVIDE TRANSPORTATION FOR AMA. MOTHER REPORTED PT RECEIVED A CAB THE LAST TIME HE WAS HERE AND HE LEFT AMA THE LAST TIME
--- NOTE | 2022-04-28 22:22 | NUR ---
SPOKE WITH CHARGE NURSE KIRSTEN CONFIRMED AMA DOES NOT GET PROVIDED TRANSPORTATION
--- NOTE | 2022-04-28 22:48 | NUR ---
SPOKE WITH PT EXPLAINED HE WILL HAVE TO FIND HIS OWN TRANSPORTATION. EXPLAINED I CAN NOT ASSIST HIM IN LEAVING AMA. REITERATED THE IMPORTANCE OF STAYING IN THE HOSPITAL UNDER THE DOCTORS CARE
[2022-04-29] VITALS: BP_SYST 127
[2022-04-29] MEDS: LR 1,000 ML IV SCH (03:35)
[2022-04-29] MEDS: KCL 40mEq in D5/0.45NS 1000 mL 1,000 ML IV SCH (06:15)
--- NOTE | 2022-04-29 08:09 | NUR ---
0805 Removed Right 22 Gauge IV catheter without difficultly.Patient tolerated well and denied pain after removal.Patient stated he is feeling better and denies experiencing episodes of nausea at this time.
[2022-04-29] MEDS ORDERED: acetaZOLAMIDE 250 MG TABLET (DIAMOX) PO SCH (09:00)
[2022-04-29 09:34] LABS: BASOPHILS # (AUTO) 0.1 K/uL (0.0-0.2); BASOPHILS % (AUTO) 0.9 % (0.0-2.0); EOSINOPHILS # (AUTO) 0.3 K/uL (0.0-0.4); EOSINOPHILS % (AUTO) 4.3 % (0.0-4.0); HEMOGLOBIN 10.4 g/dL (14.0-18.0); LYMPHOCYTES # (AUTO) 1.8 K/uL (1.0-5.5); LYMPHOCYTES % (AUTO) 26.1 % (20.5-51.5); MEAN CORPUSCULAR HEMOGLOBIN 32 pg (27-31); MEAN CORPUSCULAR HGB CONC 34 % (32-36); MEAN CORPUSCULAR VOLUME 94 fL (79.0-98.0); MONOCYTES # (AUTO) 0.4 K/uL (0.0-1.0); NEUTROPHILS # (AUTO) 4.3 K/uL (1.8-7.7); NEUTROPHILS % (AUTO) 62.7 % (40.0-70.0); PLATELET COUNT (AUTO) 154 K/uL (130-430); RED BLOOD CELL COUNT(AUTO) 3.29 MIL/uL (4.2-6.2); RED CELL DISTRIBUTION WIDTH 14.4 % (9.0-15.0); WHITE BLOOD COUNT (AUTO) 6.9 K/uL (4.8-10.8)
[2022-04-29 09:54] LABS: ALBUMIN 2.9 g/dL (3.4-4.8); CREATININE 1.16 mg/dL (0.55-1.30); TOTAL BILIRUBIN 0.2 mg/dL (0.0-1.0)
--- NOTE | 2022-04-29 10:27 | NUR ---
PT REFUSED ALL MONING MEDS. PT ATE BREAFAST. THEN MOM CAME IN TO PICKUP PT. PT SIGNED AMA FORM THEN WALKED OUT FLOOR. MOM PICKUP PT UP IN WAITING ROOM.
== END 2022-04-29 10:23 | disposition left against medical advice (07) | DRG 53 ==
LOC: SED 08:28 → STU 10:22
PROVIDERS: ADMIT Internal Medicine; ATTEND Internal Medicine
PROC: 4A00X4Z Measurement of Central Nervous Electrical Activity, External Approach (ICD-10-PCS; principal; 2022-04-26)
DX: G40.909 Epilepsy, unspecified, not intractable, without status epilepticus (principal); N17.0 Acute kidney failure with tubular necrosis; G93.41 Metabolic encephalopathy; E44.0 Moderate protein-calorie malnutrition; E87.3 Alkalosis; E87.1 Hypo-osmolality and hyponatremia; E87.6 Hypokalemia; F10.10 Alcohol abuse, uncomplicated; Y90.9 Presence of alcohol in blood, level not specified; Z53.29 Procedure and treatment not carried out because of patient's decision for other reasons; K80.20 Calculus of gallbladder without cholecystitis without obstruction; E86.0 Dehydration; I12.9 Hypertensive chronic kidney disease with stage 1 through stage 4 chronic kidney disease, or unspecified chronic kidney disease; Z20.822 Contact with and (suspected) exposure to COVID-19; N18.30 Chronic kidney disease, stage 3 unspecified; Z79.899 Other long term (current) drug therapy; Z68.1 Body mass index [BMI] 19.9 or less, adult
CPT/HCPCS: 36415; 70450-TC; 76376; 76770; 80048; 80053; 80307; 81000; 82435; 82533; 82542; 82570; 82803-TC; 83735; 84100; 84302; 84999; 85025; 85610-TC; 85730-TC; 93005; 95816; 96365; 96375; 99285; G0378; G0480; G0481; G0482; J1953; J2060; J2405; J2765; J3480; J7030; J7050